=== PATIENT | male | born 1950 | race Caucasian/White ===

== ENCOUNTER 2024-07-10 10:44 | Emergency (ER) | payer MEDICARE, BC, SELFPAY ==
[2024-07-10 10:57] VITALS: BP 142/91
--- NOTE | 2024-07-10 11:31 | ED.GENMED ---
History of Present Illness
General
Chief Complaint: Back Pain
Source: patient and records
Exam Limitations: none
Time Seen by Provider: 07/10/24 11:21
Nursing documentation reviewed up to this point in time: agreed with
History of Present Illness
History of Present Illness:
Patient is a 73-year-old male who presents to the emergency department complaining of pain in his right buttock going into the lateral aspect of his right thigh. Patient started with the pain about 3 to 4 days ago. 3 days ago played golf and felt
fine playing golf but after sitting down became worse and today he could barely get out of bed and the pain was excruciating. Patient has had injections before. Patient is calling his pain physician tomorrow to get an appointment. Patient denies
numbness or paresthesias. Patient's had superficial skin cancer before and his right cheek and right shoulder. Patient denies any incontinence, GI or problems. Patient denies fever or chills. Patient denies any weight loss.
Past History
Past History
ED Past Medical History: Arrthythmia, Cancer (Skin), GERD, HTN, Hypercholesterolemia and Other (Multiple Rib fractures)
ED Past Surgical History: Orthopedic (Right shoulder Rotator cuff repair)
Social History
Tobacco: Non-smoker
Alcohol: Occasional
Personal:
Living: with family
Review of Systems
Review of Systems
All Other Systems: ROS reviewed and negative except as documented in HPI and ROS
Constitutional: Reports no symptoms
EENT: Reports no symptoms
Respiratory: Reports no symptoms
Cardiac: Reports no symptoms
ABD/GI: Reports no symptoms
: Reports no symptoms
Musculoskeletal: Reports back pain
Skin: Reports no symptoms
Neurological: Reports no symptoms
Hematologic/Lymphatic: Reports no symptoms
Phy Exam
Physical Exam
Physical Exam:
Physical Exam
General: mild to moderate distress, alert and appropriate, well nourished, well hydrated
HENT: Normocephalic, supple
Eyes: Clear sclera, conjuctiva without injection
Heart: Regular rhythm and rate. No S3, S4. No murmur.
Lungs: No respiratory distress, no stridor, lung sounds clear and equal bilaterally
Abdomen: Soft, nontender, no organomegaly, no CVA tenderness, BS good
Neuro: Alert and oriented x 3, CN II - XII intact, no motor focality, no cerebellar dysfunction, sensory intact, DTRs 1/4 and equal bilaterally
Skin: no rash
Psychiatric: well kept. interactive and cooperative
Extremities: No edema, cyanosis, tenderness, Good and equal peripheral pulses.
Musculoskeletal: No lumbar or SI joint tenderness. Tenderness in the right buttock that increases with straight leg raising but not with sciatic stretch.
Course
Vital Signs
Initial and Last Documented VS:
Initial Vital Signs
Temp Pulse Resp BP Pulse Ox
97.8 F 56 16 142/91 98
07/10/24 10:57 07/10/24 10:57 07/10/24 10:57 07/10/24 10:57 07/10/24 10:57
Last Documented Vital Signs
Temp Pulse Resp BP Pulse Ox
97.8 F 56 16 142/91 98
07/10/24 10:57 07/10/24 10:57 07/10/24 10:57 07/10/24 10:57 07/10/24 10:57
*Radiology
Radiology exam reviewed: other (na)
*Pulse Oximetry
Patient hypoxic: no
*EKG
Interpreted by ED Provider?: NA
*[employer] Interpretation
Rate: [employer]- N/A
*Critical Care Note
Total Time (30-74mins, 75-104mins- exclusive of procedures): Not Applicable
ED Attending Note
-
Portions of this chart may have been created with voice recognition software.� Occasional wrong word or��sound alike� substitutions may have occurred due to the inherent limitations of voice recognition software.
Discharge Plan
Departure
Date of Disposition: 07/10/24
Time of Disposition: 11:36
Patient with high blood pressure during this ER visit?: No
Condition: Good
Covid-19: Not Applicable
Discharge Problem:
Acute lumbar radiculopathy
Instructions: Low Back Pain (DC), Radiculopathy (DC)
Prescriptions:
New
prednisone 20 mg tablet
20 mg PO BID Qty: 14 0RF
oxycodone 5 mg tablet
5 mg PO Q4H PRN (Reason: Pain) Qty: 15 0RF
No Action
cholecalciferol (vitamin D3) 2,000 UNIT tablet
2,000 unit PO DAILY
ezetimibe 10 MG tablet
10 mg PO DAILY
rosuvastatin [Crestor] 20 mg Tablet
20 mg PO QPM
zinc 50 mg Tablet
50 mg PO DAILY
mupirocin 2 % ointment
1 applic topical BID Qty: 1 0RF
Patient Comments:
last dose was this am, 11/12/22
dexamethasone 4 mg tablet
4 mg PO BID Qty: 6 0RF
Rx Instructions:
take with food
post-op use only
meloxicam 15 mg tablet
15 mg PO DAILY Qty: 14 0RF
Rx Instructions:
take with food
post-op
oxycodone 5 mg tablet
5 - 10 mg PO Q6HPRN PRN (Reason: 1 tab moderate-2 tabs severe pain) Qty: 30 0RF
Rx Instructions:
Dx TKA
ongoing therapy
acetaminophen [Acetaminophen Extra Strength] 500 mg tablet
1,000 mg PO Q6H Qty: 60 0RF
Rx Instructions:
DO NOT exceed >4000 mg daily.
docusate sodium [Colace] 100 mg capsule
100 mg PO BID Qty: 30 0RF
senna 8.6 mg capsule
17.2 mg PO BID Qty: 30 0RF
aspirin 325 mg capsule
325 mg PO DAILY Qty: 30 0RF
Rx Instructions:
Take daily x4 weeks for blood clot prevention; then resume Aspirin 81 mg daily.
alprazolam [Xanax] 0.25 mg Tablet
0.25 mg PO PRN PRN (Reason: anxiety) Qty: 1 0RF
Rx Instructions:
Caution with oxycodone - can cause drowsiness.
lisinopril 40 mg Tablet
40 mg PO DAILY Qty: 1 0RF
Rx Instructions:
HOLD if systolic blood pressure <130 while on Oxycodone.
tramadol 50 mg tablet
50 - 100 mg PO Q6H PRN (Reason: 1 tab moderate, 2 tabs if pain severe) Qty: 30 0RF
Rx Instructions:
Dx Orthopedic surgery
Ongoing therapy
post-op
gabapentin 300 mg capsule
300 mg PO BID Qty: 14 0RF
Referrals:
Chucky Perkins MD [Active] - Call in 1-3 days for appt
Activity Restrictions/Additional Instructions:
You can buy lidocaine patches [id number] which may help the area. No heavy lifting or straining. Any fever, loss of bowel or bladder control or increasing pain or weakness please return otherwise follow-up with your physician. You can use
acetaminophen 650 mg every 6 hours for mild to moderate pain.
Interventions
Interventions:
*Risk Screen - Suicide Last Done: 07/10/24 10:57
*General Assessment Last Done: 07/10/24 10:57
*Neglect/Abuse Screening Last Done: 07/10/24 10:57
Discharge Date and Time
Print Language: ANDORRAN
== END 2024-07-10 11:50 | disposition home or self-care (01) ==
LOC: EMR 10:44
PROVIDERS: EMERGENCY PHYSICIAN Emergency Medicine; FAMILY PHYSICIAN Family Medicine
DX: M54.16 Radiculopathy, lumbar region (principal); I10 Essential (primary) hypertension; E78.00 Pure hypercholesterolemia, unspecified; K21.9 Gastro-esophageal reflux disease without esophagitis; Z85.828 Personal history of other malignant neoplasm of skin
CPT/HCPCS: 99283